=== PATIENT | female | born 1980 | race Caucasian/White ===

== ENCOUNTER 2024-05-09 17:32 | Inpatient (IN) | payer BC ==
[~2024-05-09] VITALS: Ht 152.4 cm; Wt 105.4 kg
[2024-05-09 18:15] LABS: HEMATOCRIT. 37.9 % (36.0-48.0); HEMOGLOBIN. 12.9 g/dL (12.0-16.0); MEAN CORPUSCULAR HEMOGLOBIN 30.5 pg (28.0-32.0); MEAN CORPUSCULAR HGB CONC 34.1 g/dL (31.0-37.0); MEAN CORPUSCULAR VOLUME 89.4 fL (81.0-99.0); MEAN PLATELET VOLUME 7.6 fl (7.4-10.4); PLATELET 346 x1000/uL (130-400); RED BLOOD CELL COUNT 4.23 mill/uL (4.2-5.4); RED CELL DISTRIBUTION WIDTH 13.9 % (11.6-14.6); WHITE BLOOD COUNT 15.7 x1000/uL (4.5-11.0)
[2024-05-09 18:16] LABS: DIFFERENTIAL COMMENT 1
[2024-05-09 18:26] LABS: CHLORIDE 108 mEq/L (98-107); POTASSIUM 3.6 mEq/L (3.5-5.1); SODIUM 141 mEq/L (136-145)
[2024-05-09 18:29] LABS: CALCIUM 9.3 mg/dL (8.7-10.4); CARBON DIOXIDE 26 mEq/L (21-32)
[2024-05-09] MEDS: MORPHINE SULFATE 4 MG/ML INJ (FOR IV/IM USE) IV ONE (18:30)
[2024-05-09 18:34] LABS: CREATININE 0.7 mg/dL (0.6-1.0); GLUCOSE 108 mg/dL (70-105); PLATELET ESTIMATE NORMAL; UREA NITROGEN BLOOD 7 mg/dL (9-23)
[2024-05-09 18:35] LABS: ALANINE AMINOTRANSFERASE 55 IU/L (10-49)
[2024-05-09 18:36] LABS: ALBUMIN 4.1 g/dL (3.2-4.8); ASPARTATE AMINOTRANSFERASE 110 IU/L (<34); BILIRUBIN DIRECT 0.9 mg/dL (<=3.0); BILIRUBIN TOTAL 1.7 mg/dL (0.1-1.0); PROTEIN TOTAL 7.8 g/dL (6.0-8.3)
[2024-05-09] MEDS: SODIUM CHLORIDE 0.9% 1,000 ML IV ONE (18:45)
[2024-05-09 19:03] LABS: CLARITY URINE CLEAR (CLEAR); COLOR URINE DARK YELLOW (YELLOW); GLUCOSE URINE NEGATIVE (NEGATIVE); KETONES URINE TRACE (NEGATIVE); LEUKOCYTE ESTERASE URINE TRACE (NEGATIVE); NITRITE URINE NEGATIVE (NEGATIVE); OCCULT BLOOD URINE NEGATIVE (NEGATIVE); PROTEIN URINE TRACE (NEGATIVE); SPECIFIC GRAVITY URINE 1.017 (1.005-1.030)
[2024-05-09 19:29] LABS: PROTHROMBIN TIME 10.8 sec (9.6-11.0)
[2024-05-09 19:29] LABS: BACTERIA URINE NONE SEEN; RBC URINE 0-2 /hpf (0-2); SQUAMOUS EPITHELIAL CELL URINE 2+ /lpf (RARE/1+); WBC URINE 0-2 /hpf (0-2)
[2024-05-09] MEDS ORDERED: NALOXONE HCL 0.4MG/ML VIAL IV PRN (21:30)
[2024-05-09] MEDS ORDERED: ONDANSETRON HCL 4MG/2ML INJ IV PRN (21:30)
[2024-05-09] MEDS: MORPHINE SULFATE 2 MG/ML INJ (NOT FOR IM USE) IV PRN (21:32)
[2024-05-09] MEDS: ONDANSETRON HCL 4MG/2ML INJ IV ONE (21:32)
[2024-05-09 21:40] VITALS: BP 121/70; PULSE 76; RESP 16; TEMP 37.11408; O2SAT 98
[2024-05-09] MEDS: CEFTRIAXONE 1GM/50ML 50 ML IV SCH (22:00)
[2024-05-09] MEDS: CEFTRIAXONE 1GM/50ML 50 ML IV ONE (23:26)
[2024-05-09] MEDS: METRONIDAZOLE 500 MG PREMIX 100 ML IV SCH (23:27)
[2024-05-10] VITALS: BP 128/61; PULSE 73; RESP 18; TEMP 36.89184; O2SAT 98
[2024-05-10] MEDS: DEXT 5%/0.45% NACL KCL 20MEQ/L 1,000 ML IV SCH (03:29)
[2024-05-10] MEDS: KETOROLAC 15MG/ML VIAL IV PRN (03:30)
[2024-05-10 04:15] VITALS: BP 113/67; PULSE 67; RESP 20; TEMP 37.00296; O2SAT 96
[2024-05-10 13:24] LABS: HCG SCREEN NEGATIVE
[2024-05-10 14:42] VITALS: BP 121/51; PULSE 84; RESP 18; TEMP 36.8072
[2024-05-10] MEDS ORDERED: INFLUENZA VACCINE 05/PF 0.5 ML SYRINGE IM ONE (17:15)
[2024-05-10 18:21] LABS: EOSINOPHILS % 0.5 % (0.0-5.0); HEMATOCRIT. 35.9 % (36.0-48.0); HEMOGLOBIN. 12.1 g/dL (12.0-16.0); LYMPHOCYTES % 9.3 % (20.0-50.0); MEAN CORPUSCULAR HEMOGLOBIN 30.8 pg (28.0-32.0); MEAN CORPUSCULAR HGB CONC 33.7 g/dL (31.0-37.0); MEAN CORPUSCULAR VOLUME 91.5 fL (81.0-99.0); MEAN PLATELET VOLUME 7.2 fl (7.4-10.4); NEUTROPHILS % 87.2 % (40.0-76.0); PLATELET 284 x1000/uL (130-400); RED BLOOD CELL COUNT 3.92 mill/uL (4.2-5.4); RED CELL DISTRIBUTION WIDTH 14.2 % (11.6-14.6); WHITE BLOOD COUNT 10.7 x1000/uL (4.5-11.0)
[2024-05-10 18:39] LABS: ALANINE AMINOTRANSFERASE 57 IU/L (10-49); ALBUMIN 3.7 g/dL (3.2-4.8); AMYLASE 559 IU/L (30-118); ASPARTATE AMINOTRANSFERASE 57 IU/L (<34); BILIRUBIN DIRECT 0.9 mg/dL (<=3.0); BILIRUBIN TOTAL 1.9 mg/dL (0.1-1.0)
[2024-05-10 20:00] VITALS: BP 115/67; PULSE 81; RESP 20; TEMP 35.61396; O2SAT 96
[2024-05-11 04:00] VITALS: BP 116/66; PULSE 89; RESP 20; TEMP 38.50308; O2SAT 97
[2024-05-11 08:00] VITALS: BP 101/41; PULSE 74; RESP 18; TEMP 36.78072; O2SAT 97
[2024-05-11 09:22] LABS: BASOPHILS % 0.1 % (0.0-2.0); EOSINOPHILS % 1.9 % (0.0-5.0); HEMATOCRIT. 33.1 % (36.0-48.0); HEMOGLOBIN. 10.9 g/dL (12.0-16.0); LYMPHOCYTES % 12.1 % (20.0-50.0); MEAN CORPUSCULAR HEMOGLOBIN 29.8 pg (28.0-32.0); MEAN CORPUSCULAR VOLUME 90.2 fL (81.0-99.0); MEAN PLATELET VOLUME 8.1 fl (7.4-10.4); MONOCYTES % 4.2 % (2.0-8.0); NEUTROPHILS % 81.7 % (40.0-76.0); PLATELET 273 x1000/uL (130-400); RED BLOOD CELL COUNT 3.67 mill/uL (4.2-5.4); WHITE BLOOD COUNT 9.7 x1000/uL (4.5-11.0)
[2024-05-11 09:47] LABS: CHLORIDE 108 mEq/L (98-107); POTASSIUM 3.8 mEq/L (3.5-5.1); SODIUM 139 mEq/L (136-145)
[2024-05-11 09:48] LABS: CALCIUM 8.3 mg/dL (8.7-10.4); CARBON DIOXIDE 25 mEq/L (21-32)
[2024-05-11 09:53] LABS: CREATININE 0.7 mg/dL (0.6-1.0); GLUCOSE 86 mg/dL (70-105); UREA NITROGEN BLOOD 9 mg/dL (9-23)
[2024-05-11 09:55] LABS: ALANINE AMINOTRANSFERASE 43 IU/L (10-49); ALBUMIN 3.3 g/dL (3.2-4.8); AMYLASE 283 IU/L (30-118); ASPARTATE AMINOTRANSFERASE 33 IU/L (<34); BILIRUBIN TOTAL 1.1 mg/dL (0.1-1.0); PROTEIN TOTAL 6.7 g/dL (6.0-8.3)
[2024-05-11 12:00] VITALS: BP 105/45; PULSE 78; RESP 18; TEMP 36.72516; O2SAT 97
[2024-05-11] MEDS ORDERED: ROCURONIUM BROMIDE 10MG/ML VIAL 5ML IV ONE (13:21)
[2024-05-11] MEDS ORDERED: PROPOFOL 200MG/20ML VIAL IV ONE (13:21)
[2024-05-11] MEDS ORDERED: FENTANYL CITRATE/PF 50MCG/ML 2ML VIAL ONE (13:21)
[2024-05-11] MEDS ORDERED: MIDAZOLAM HCL 2 MG/2 ML VIAL ONE (13:23)
[2024-05-11] MEDS ORDERED: SKIN ADHESIVE 0.7 GM EA TOP ONE (13:57)
[2024-05-11] MEDS ORDERED: BUPIVACAINE HCL/PF 0.5% (5MG/ML) 10ML ONE (13:57)
[2024-05-11] MEDS ORDERED: LIDOCAINE HCL 1% 10 MG/ML 10ML VIAL ONE (13:57)
[2024-05-11] MEDS ORDERED: HYDROMORPHONE HCL/PF 2MG/ML INJ ONE ×2 (14:12→14:57)
[2024-05-11] MEDS ORDERED: HYDROMORPHONE HCL/PF 1MG/ML INJ IV PRN (14:15)
[2024-05-11] MEDS ORDERED: LABETALOL 5MG/ML 4ML INJ IV PRN (14:15)
[2024-05-11] MEDS ORDERED: MEPERIDINE HCL/PF 25MG/ML CPJ IV PRN (14:15)
[2024-05-11] MEDS ORDERED: SUGAMMADEX SODIUM 200MG/2ML VIAL IV ONE (14:51)
[2024-05-11 16:00] VITALS: BP 114/60; PULSE 74; RESP 18; TEMP 36.44736; O2SAT 97
[2024-05-11] MEDS: ONDANSETRON HCL 4MG/2ML INJ IV PRN ×2 (16:40→18:48)
[2024-05-11 20:00] VITALS: BP 115/56; PULSE 73; RESP 20; TEMP 36.61404; O2SAT 98
[2024-05-12] VITALS: BP 109/51; PULSE 68; RESP 20; TEMP 36.50292; O2SAT 95
[2024-05-12 04:00] VITALS: BP 105/48; PULSE 67; RESP 20; TEMP 36.61404; O2SAT 95
[2024-05-12 08:00] VITALS: BP 97/50; PULSE 64; RESP 18; TEMP 36.22512; O2SAT 98
[2024-05-12 08:24] LABS: CARBON DIOXIDE 24 mEq/L (21-32); CHLORIDE 109 mEq/L (98-107); POTASSIUM 3.8 mEq/L (3.5-5.1); SODIUM 139 mEq/L (136-145)
[2024-05-12 08:25] LABS: CALCIUM 8.3 mg/dL (8.7-10.4)
[2024-05-12 08:28] LABS: BASOPHILS % 0.1 % (0.0-2.0); EOSINOPHILS % 0.1 % (0.0-5.0); HEMATOCRIT. 31.5 % (36.0-48.0); HEMOGLOBIN. 10.7 g/dL (12.0-16.0); MEAN CORPUSCULAR HEMOGLOBIN 30.7 pg (28.0-32.0); MEAN CORPUSCULAR VOLUME 90.3 fL (81.0-99.0); MEAN PLATELET VOLUME 7.7 fl (7.4-10.4); MONOCYTES % 4.2 % (2.0-8.0); NEUTROPHILS % 84.6 % (40.0-76.0); PLATELET 259 x1000/uL (130-400); RED BLOOD CELL COUNT 3.49 mill/uL (4.2-5.4); WHITE BLOOD COUNT 10.6 x1000/uL (4.5-11.0)
[2024-05-12 08:29] LABS: CREATININE 0.5 mg/dL (0.6-1.0); GLUCOSE 107 mg/dL (70-105)
[2024-05-12 08:30] LABS: UREA NITROGEN BLOOD 6 mg/dL (9-23)
[2024-05-12 08:31] LABS: ALANINE AMINOTRANSFERASE 48 IU/L (10-49); ALBUMIN 3.2 g/dL (3.2-4.8); AMYLASE 59 IU/L (30-118); ASPARTATE AMINOTRANSFERASE 58 IU/L (<34)
[2024-05-12 08:32] LABS: BILIRUBIN TOTAL 0.5 mg/dL (0.1-1.0); PROTEIN TOTAL 6.5 g/dL (6.0-8.3)
[2024-05-12 16:19] VITALS: BP 99/47; PULSE 63; TEMP 97.6; O2SAT 97
== END 2024-05-12 16:40 | disposition home or self-care (01) | DRG 417 ==
LOC: ER 17:32 → EDBEDREQ 20:01 → 5WST 20:32 → 6EST 05-10 11:11
PROVIDERS: ADMIT Internal Medicine; ATTEND Internal Medicine
PROC: 0FT44ZZ Resection of Gallbladder, Percutaneous Endoscopic Approach (ICD-10-PCS; principal; 2024-05-11)
DX: K80.00 Calculus of gallbladder with acute cholecystitis without obstruction (principal); K85.10 Biliary acute pancreatitis without necrosis or infection; N39.0 Urinary tract infection, site not specified; Z68.42 Body mass index [BMI] 45.0-49.9, adult; E66.9 Obesity, unspecified; D64.9 Anemia, unspecified; R74.01 Elevation of levels of liver transaminase levels; Z79.899 Other long term (current) drug therapy
CPT/HCPCS: 36415; 74181; 76705; 80048; 80053; 80076; 81003; 82150; 84703; 85025; 86850; 86900; 87426; 88304; 99285; J0696; J1171; J1885; J2250; J2270; J2405; J2704; J3010; J3490; J7030